=== PATIENT | male | born 1990 | race Caucasian/White ===

== ENCOUNTER 2017-12-05 23:46 | Emergency (ER) | payer BC, OTHER ==
[~2017-12-05] VITALS: Ht 170.2 cm; Wt 68.0 kg
[2017-12-05 23:46] VITALS: BP 125/79
[~2017-12-05 23:46] MED LIST: INSU100V27
== END 2017-12-06 02:25 | disposition home or self-care (01) ==
LOC: ER 23:52
DX: S61.213A Laceration without foreign body of left middle finger without damage to nail, initial encounter (principal); E10.9 Type 1 diabetes mellitus without complications; F10.10 Alcohol abuse, uncomplicated; Z98.890 Other specified postprocedural states; Z88.1 Allergy status to other antibiotic agents; Z79.4 Long term (current) use of insulin; W01.110A Fall on same level from slipping, tripping and stumbling with subsequent striking against sharp glass, initial encounter; Y93.89 Activity, other specified; Y92.89 Other specified places as the place of occurrence of the external cause; Y99.8 Other external cause status
CPT/HCPCS: A4606; A6402; Z7610